=== PATIENT | female | born 1960 | race African-American/Black ===

== ENCOUNTER 2020-08-26 12:21 | Inpatient (IN) | payer MEDICARE, MEDICAID ==
[~2020-08-26] VITALS: Ht 165.1 cm; Wt 137.3 kg
[2020-08-26] MEDS ORDERED: CYMBALTA60 MG PO (12:30)
[2020-08-26] MEDS ORDERED: TOPROL XL100 MG PO (12:30)
[2020-08-26] MEDS ORDERED: ASPIRIN81 MG PO (12:31)
[2020-08-26] MEDS ORDERED: HYDROCODONE-AC1 EAC2 PO (12:31)
[2020-08-26] MEDS ORDERED: VOLTAREN75 MG PO (12:31)
[2020-08-26] MEDS ORDERED: CALCIUM 500 +1 EAC3 PO (12:32)
[2020-08-26] MEDS ORDERED: AMITRIPTYLINE H50 MG PO (12:32)
[2020-08-26] MEDS ORDERED: STOOL SOFTENER250 MG PO (12:32)
[2020-08-26 14:31] VITALS: BP 103/83
[2020-08-26 15:30] VITALS: BP 144/112
[2020-08-26 17:01] VITALS: BP 177/91
[2020-08-26 18:03] VITALS: BP 177/91
--- NOTE | 2020-08-26 18:11 | NUR ---
SARAH BARKLEY, SISTER [phone]
[2020-08-26 20:00] VITALS: BP 157/98
[2020-08-27] VITALS (8 sets, daily range): BP systolic 119–167; BP diastolic 68–90; Ht 165.1 cm; Wt 137.3 kg
[2020-08-27 07:07] LABS: BASOPHILS 1.1 % (0-2); HEMATOCRIT 30.2 % (36.0-48.0); MCH 29.5 pg (26.0-34.0); MCV 89.2 fL (80.0-100.0); MEAN PLATELET VOLUME 8.8 fL (7.4-10.4); NEUTROPHILS 52.9 % (40-80); PLATELET COUNT 349 10x3/uL (130-400); RBC 3.38 10x6/uL (4.00-5.40); RDW 15.2 % (11.5-14.5); WBC 6.9 10x3/uL (4.8-10.8)
[2020-08-27 07:10] LABS: ALBUMIN 2.5 g/dL (3.4-5.0); ALKALINE PHOSPHATASE 84 U/L (30-120); ALT (SGPT) 26 U/L (10-68); BILIRUBIN - TOTAL 0.43 mg/dL (0.2-1.3); C-REACTIVE PROTEIN 3.2 mg/dL (0.0-0.9); CALC OSMOLALITY 281 mosm/kg (275-300); CALCIUM 8.4 mg/dL (8.5-10.1); CARBON DIOXIDE 26.5 mmol/L (21.0-32.0); CHLORIDE - SERUM 110 mmol/L (98-107); CREATININE - SERUM 0.8 mg/dL (0.6-1.3); GLUCOSE 89 mg/dL (74-106); MAGNESIUM - SERUM 1.8 mg/dL (1.8-2.4); POTASSIUM - SERUM 3.4 mmol/L (3.5-5.1); PROTEIN - SERUM 7.1 g/dL (6.4-8.2); SODIUM 143 mmol/L (136-145); UREA NITROGEN 8 mg/dL (7-18); eGFR NON AFRICAN AMERICAN 78 mL/min (90-120)
--- NOTE | 2020-08-27 07:50 | NUR ---
ALERT AND ORIENTED. ASSESSMENT COMPLETE. DENIES NEEDS. BED LOW. CALL [facility] AND PERSONAL ITEMS IN REACH. WILL CONTINUE TO MONITOR.
--- NOTE | 2020-08-27 10:28 | NUR ---
OLD WOUND VAC FOAM REMOVED FROM PATIENT'S WOUND ON BACK. IRRIGATED WITH SALINE AND PACKED WITH WET GAUZE. COVERED WITH DRY GAUZE AND FOAM TAPE. WAITING WOUND VAC OR WOUND CARE ORDERS FROM . GREEN TINGED DRAINAGE NOTED FROM WOUND AT THIS TIME.
--- NOTE | 2020-08-27 11:14 | NUR ---
SPOKE WITH DR FISH WHO STATES PATIENT NEEDS TO GO BACK TO SURGEON SHE PREVIOUSLY SAW. STATES IS NOT GOING TO SEE THE PATIENT. ELIZABETH FAROOQ PAGED. WAITING CALL BACK.
--- NOTE | 2020-08-27 11:19 | NUR ---
SPOKE WITH ELIZABETH FAROOQ WHO STATES WE HAVE ALREADY TRIED TO SEND PATIENT BACK WHERE SHE CAME FROM BUT THEY DIDN'T HAVE A BED. DR FISH NOTIFIED AND STATES "WELL SHE NEEDS TO GO BACK SOON THEY HAVE A BED THEN." ELIZABETH FAROOQ MADE AWARE.
--- NOTE | 2020-08-27 13:48 | NUR ---
I have reviewed this patient and I concur with the Shift Assessment completed by the Licensed Practical Nurse today this shift.
--- NOTE | 2020-08-27 18:26 | NUR ---
CROOK REMOVED PER ORDER.
--- NOTE | 2020-08-27 19:13 | MORECARE ---
CASE MANAGEMENT DISCHARGE SUMMARY PATIENT: RHETT FOOTE UNIT: [id number] ADM DATE: 08/27/20 AGE: 60 : 62 SEX: F ROOM/BED: D.2220 AUTHOR: ARACELIDOC PHYSICIAN: REFERRING PHYSICIAN: BHUPINDER WINTER MD DATE OF SERVICE: 08/27/20 Case Management Discharge Planning Summary DCP REVIEW SUMMARY ANTICIPATED D/C DATE: EXPECTED LOS : CASE STATUS: DCP Initiated INITIAL REVIEW: 08/26/2020 INITIAL REVIEWER: Colt Holloway FINAL DISCHARGE DISPOSITION: : FINAL REVIEWER: FINAL REVIEW DATE: DCP Focus Questions & Answers DCP Evaluation QUESTION: ANSWER Family / Caregiver's ability to cope with chronic illness: : a. Adequate (ability to meet patient's medical needs, ensures patient attends medical appts.) Patient gives permission to discuss discharge plans with: (name, relationship and number) : Lucrecia dominique, Patient's ability to cope with chronic illness : d. No chronic illness Patient's current cognitive status: : *Oriented to person, place, situation, time and present Patient and/or caregiver agree upon recommended discharge plan? : Yes Physical Status: : Independent with ADL's Family / Caregiver's ability to cope with chronic illness: : a. Adequate (ability to meet patient's medical needs, ensures patient attends medical appts.) Functional screen assessment: : Basic needs can adequately be met by self Does the patient have the ability to pay for or attain post discharge needs / services? : Yes Living Arrangements: : Home with Extended Family Is there a likelihood that the patient will require additional services to return to the preadmission environment? : Yes Equipment needed for post hospitalization: : None Baseline cognitive status: : *Oriented to person, place, situation, time and present Patient with capacity for self-care or can be cared for in same environment as prior to hospitalization? : Yes Physical environment modification needed / anticipated for discharge: : No Medication Management: : Patient states can afford medications Medication Management: : Patient states can read and understand medication labels Pharmacy name(s): : [facility] in [place], [place] Does Patient have transportation to get home and to follow-up medical appointments when discharged from the hospital? : Yes Would patient like to participate in any Care Coordination programs (if applicable): : Not applicable Does the patient have electricity at home? : Yes Does the patient have running water in their house? : Yes Equipment in use: : Cane - Single Leg Equipment in use: : Walker - Rolling Mental health screen: : No mental health history DCP Re-evaluation QUESTION: ANSWER Would patient like to participate in any Care Coordination programs (if applicable): : Not applicable PATIENT: RHETT FOOTE ENCOUNTER: [id number] MEDICAL RECORD#: [id number] ADMISSION DATE: 08/27/2020 DISCHARGE DATE: ATTENDING MD: BHUPINDER LEMUS : AGE: 60 MARITAL STATUS: D DC PLAN ID: [id number] FACILITY: [facility] PRINTED ON: 08/27/20 19:13 CT All edits/amendments must be made on the electronic document DICTATION DATE: 08/27/201911 LOCAL TELEPHONE OPERATOR: ANTONINO 08/27/201911 RPT#: [id number] DC DATE: STATUS: ADM IN [facility] [address] [place] [address] END OF REPORT
--- NOTE | 2020-08-27 19:30 | NUR ---
RECEIVED BEDSIDE REPORT. ALERT AND ORIENTED X 4 RESTING IN BED. NO C/O PAIN, NO S/S OF DISTRESS. PIV TO LEFT FOREARM INFUSING. DRESSING C/D/I. DRESSING TO LOWER BACK C/D/I. UP WITH ASSISTANCE AND AMBULATORY WITH STEADY GAIT. EDUCATION PROVIDED FOR CALL LIGHT AND I/S. CALL LIGHT IN REACH BED LOCKED IN LOW POSITION.
--- NOTE | 2020-08-27 19:43 | MORECARE ---
CASE MANAGEMENT DISCHARGE SUMMARY PATIENT: RHETT FOOTE UNIT: [id number] ADM DATE: 08/27/20 AGE: 60 : 62 SEX: F ROOM/BED: D.2220 AUTHOR: ARACELIDOC PHYSICIAN: REFERRING PHYSICIAN: BHUPINDER WINTER MD DATE OF SERVICE: 08/27/20 Case Management Discharge Planning Summary COMMENTS ENTERED DATE: 08/27/20 19:41 CT COMMENT TYPE: Discharge Planning REVIEWER: Colt Holloway CM met with patient to complete DC plan and to evaluate needs. Patient lives independently with her daughter, Carlton and stated that her person to notify is her sister, Lucrecia Momin, . Patient stated that her home is safe and has electricity and running water. Patient stated that she does not want to continue home health services with [facility] and would like her home health and wound vac care to be with [facility]. Patient stated that she has no problems paying for medications and she fills her medications at [facility] in [place], [place]. Patient stated that her primary care physician is Dr. Medina. At discharge, the patient plans to return home and feels this is a safe discharge. CM discussed availability of home health, rehab services, and medical equipment. Patient declined SNF, IPR, and DME. Patient would like [facility] services, with [facility], . [facility] signed and placed in chart. Clinical faxed to [phone]. Patient stated that she has a cane and walker at home. Patient voiced no other needs at this time and is satisfied with DC plan. Transportation provider at discharge will be with [facility] BOURGEOIS delivered, explained, signed by the patient, and placed in chart. Copy of form also left with the patient. CM will continue to follow and will assist as needed with dc plans/needs. DCP REVIEW SUMMARY ANTICIPATED D/C DATE: EXPECTED LOS : CASE STATUS: DCP Initiated INITIAL REVIEW: 08/26/2020 INITIAL REVIEWER: Colt Holloway FINAL DISCHARGE DISPOSITION: : FINAL REVIEWER: FINAL REVIEW DATE: DCP Focus Questions & Answers DCP Evaluation QUESTION: ANSWER Patient and/or caregiver agree upon recommended discharge plan? : Yes Family / Caregiver's ability to cope with chronic illness: : a. Adequate (ability to meet patient's medical needs, ensures patient attends medical appts.) Patient's current cognitive status: : *Oriented to person, place, situation, time and present Patient's ability to cope with chronic illness : d. No chronic illness Patient gives permission to discuss discharge plans with: (name, relationship and number) : Lucrecia dominique, Does the patient have the ability to pay for or attain post discharge needs / services? : Yes Functional screen assessment: : Basic needs can adequately be met by self Family / Caregiver's ability to cope with chronic illness: : a. Adequate (ability to meet patient's medical needs, ensures patient attends medical appts.) Physical Status: : Independent with ADL's Equipment needed for post hospitalization: : None Is there a likelihood that the patient will require additional services to return to the preadmission environment? : Yes Living Arrangements: : Home with Extended Family Patient with capacity for self-care or can be cared for in same environment as prior to hospitalization? : Yes Baseline cognitive status: : *Oriented to person, place, situation, time and present Physical environment modification needed / anticipated for discharge: : No Medication Management: : Patient states can read and understand medication labels Medication Management: : Patient states can afford medications Pharmacy name(s): : [facility] in [place], [place] Does Patient have transportation to get home and to follow-up medical appointments when discharged from the hospital? : Yes Would patient like to participate in any Care Coordination programs (if applicable): : Not applicable Does the patient have electricity at home? : Yes Does the patient have running water in their house? : Yes Equipment in use: : Walker - Rolling Equipment in use: : Cane - Single Leg Mental health screen: : No mental health history DCP Re-evaluation QUESTION: ANSWER Would patient like to participate in any Care Coordination programs (if applicable): : Not applicable PATIENT: RHETT FOOTE ENCOUNTER: [id number] MEDICAL RECORD#: [id number] ADMISSION DATE: 08/27/2020 DISCHARGE DATE: ATTENDING MD: BHUPINDER LEMUS : AGE: 60 MARITAL STATUS: D DC PLAN ID: [id number] FACILITY: [facility] PRINTED ON: 08/27/20 19:43 CT All edits/amendments must be made on the electronic document DICTATION DATE: 08/27/201942 EMPLOYEE BENEFITS ADMINISTRATOR: ANTONINO 08/27/201942 RPT#: [id number] DC DATE: STATUS: ADM IN [facility] [address] [place] [address] END OF REPORT
[2020-08-28 03:53] VITALS: BP 124/55
[2020-08-28 07:41] VITALS: BP 146/80
[2020-08-28 09:19] LABS: BASOPHILS 0.8 % (0-2); EOSINOPHILS 5.5 % (0-7); HEMATOCRIT 32.6 % (36.0-48.0); HEMOGLOBIN 10.7 g/dL (12-16); MCH 29.4 pg (26.0-34.0); MCHC 32.8 g/dL (31.0-37.0); MCV 89.6 fL (80.0-100.0); MEAN PLATELET VOLUME 8.2 fL (7.4-10.4); MONOCYTES 6.5 % (2-11); NEUTROPHILS 63.2 % (40-80); PLATELET COUNT 375 10x3/uL (130-400); RBC 3.64 10x6/uL (4.00-5.40); RDW 15.4 % (11.5-14.5); WBC 6.8 10x3/uL (4.8-10.8)
[2020-08-28 09:33] LABS: ALBUMIN 2.5 g/dL (3.4-5.0); ANION GAP 11.1 mmol/L (8-16); BILIRUBIN - TOTAL 0.28 mg/dL (0.2-1.3); CALCIUM 8.4 mg/dL (8.5-10.1); CARBON DIOXIDE 27.8 mmol/L (21.0-32.0); CREATININE - SERUM 0.9 mg/dL (0.6-1.3); MAGNESIUM - SERUM 1.8 mg/dL (1.8-2.4); PHOSPHOROUS 3.1 mg/dL (2.5-4.9); POTASSIUM - SERUM 3.9 mmol/L (3.5-5.1); PROTEIN - SERUM 7.5 g/dL (6.4-8.2)
[2020-08-28 11:03] VITALS: BP 132/79
[2020-08-28] MEDS ORDERED: NICODERM CQ1 EAC2 TRANSDERM (14:13)
[2020-08-28] MEDS ORDERED: FLORAJEN DIGES1 EACH PO (14:13)
[2020-08-28] MEDS ORDERED: LEVAQUIN750 MG PO (14:13)
--- NOTE | 2020-08-28 14:13 | NUR ---
I have reviewed this patient and I concur with the Shift Assessment completed by the Licensed Practical Nurse today this shift.
--- NOTE | 2020-08-28 17:03 | NUR ---
DC HOME AT THIS TIME VIA CAB BACK TO [facility]. NO DISTRESS NOTED . MEDICTION CALLED IN TO [facility] @ [phone]. VOICE UNDERSTAND OF DC ORDERS. GOING TO HAVE [facility] FOR DRESSING CHANGES. DRESSING WAS CHANGED PRIOR TO DISCHARGE ON TODAY.
--- NOTE | 2020-08-28 19:16 | MORECARE ---
CASE MANAGEMENT DISCHARGE SUMMARY PATIENT: RHETT FOOTE UNIT: [id number] ADM DATE: 08/27/20 AGE: 60 : 62 SEX: F ROOM/BED: D.2220 AUTHOR: ARACELIDOC PHYSICIAN: REFERRING PHYSICIAN: BHUPINDER WINTER MD DATE OF SERVICE: 08/28/20 Case Management Discharge Planning Summary COMMENTS ENTERED DATE: 08/27/20 19:41 CT COMMENT TYPE: Discharge Planning REVIEWER: Colt Holloway CM met with patient to complete DC plan and to evaluate needs. Patient lives independently with her daughter, Carlton and stated that her person to notify is her sister, Lucrecia Momin, . Patient stated that her home is safe and has electricity and running water. Patient stated that she does not want to continue home health services with [facility] and would like her home health and wound vac care to be with [facility]. Patient stated that she has no problems paying for medications and she fills her medications at [facility] in [place], [place]. Patient stated that her primary care physician is Dr. Medina. At discharge, the patient plans to return home and feels this is a safe discharge. CM discussed availability of home health, rehab services, and medical equipment. Patient declined SNF, IPR, and DME. Patient would like [facility] services, with [facility] Care, . YOUSUF signed and placed in chart. Clinical faxed to [phone]. Patient stated that she has a cane and walker at home. Patient voiced no other needs at this time and is satisfied with DC plan. Transportation provider at discharge will be with [facility]OUR[facility] delivered, explained, signed by the patient, and placed in chart. Copy of form also left with the patient. CM will continue to follow and will assist as needed with dc plans/needs. DCP REVIEW SUMMARY ANTICIPATED D/C DATE: EXPECTED LOS : CASE STATUS: DCP Initiated INITIAL REVIEW: 08/26/2020 INITIAL REVIEWER: Colt Holloway FINAL DISCHARGE DISPOSITION: : FINAL REVIEWER: FINAL REVIEW DATE: DCP Focus Questions & Answers DCP Evaluation QUESTION: ANSWER Patient and/or caregiver agree upon recommended discharge plan? : Yes Family / Caregiver's ability to cope with chronic illness: : a. Adequate (ability to meet patient's medical needs, ensures patient attends medical appts.) Patient's current cognitive status: : *Oriented to person, place, situation, time and present Patient's ability to cope with chronic illness : d. No chronic illness Patient gives permission to discuss discharge plans with: (name, relationship and number) : Lucrecia dominique, Does the patient have the ability to pay for or attain post discharge needs / services? : Yes Functional screen assessment: : Basic needs can adequately be met by self Family / Caregiver's ability to cope with chronic illness: : a. Adequate (ability to meet patient's medical needs, ensures patient attends medical appts.) Physical Status: : Independent with ADL's Equipment needed for post hospitalization: : None Is there a likelihood that the patient will require additional services to return to the preadmission environment? : Yes Living Arrangements: : Home with Extended Family Patient with capacity for self-care or can be cared for in same environment as prior to hospitalization? : Yes Baseline cognitive status: : *Oriented to person, place, situation, time and present Physical environment modification needed / anticipated for discharge: : No Medication Management: : Patient states can read and understand medication labels Medication Management: : Patient states can afford medications Pharmacy name(s): : [facility] in [place], [place] Does Patient have transportation to get home and to follow-up medical appointments when discharged from the hospital? : Yes Would patient like to participate in any Care Coordination programs (if applicable): : Not applicable Does the patient have electricity at home? : Yes Does the patient have running water in their house? : Yes Equipment in use: : Walker - Rolling Equipment in use: : Cane - Single Leg Mental health screen: : No mental health history DCP Re-evaluation QUESTION: ANSWER Would patient like to participate in any Care Coordination programs (if applicable): : Not applicable PATIENT: RHETT FOOTE ENCOUNTER: [id number] MEDICAL RECORD#: [id number] ADMISSION DATE: 08/27/2020 DISCHARGE DATE: 08/28/2020 ATTENDING MD: BHUPINDER LEMUS : AGE: 60 MARITAL STATUS: D DC PLAN ID: [id number] FACILITY: [facility] PRINTED ON: 08/28/20 19:16 CT All edits/amendments must be made on the electronic document DICTATION DATE: 08/28/201915 INTERNAL COMBUSTION ENGINEER: ANTONINO 08/28/201915 RPT#: [id number] DC DATE:08/28/20 STATUS: DIS IN [facility] [address] [facility] [place] [address] END OF REPORT
--- NOTE | 2020-08-29 07:57 | MORECARE ---
CASE MANAGEMENT DISCHARGE SUMMARY PATIENT: RHTET FOOTE UNIT: [id number] ADM DATE: 08/27/20 AGE: 60 : 62 SEX: F ROOM/BED: D.2220 AUTHOR: ARACELIDOC PHYSICIAN: REFERRING PHYSICIAN: BHUPINDER WINTER MD DATE OF SERVICE: 08/29/20 Case Management Discharge Planning Summary COMMENTS ENTERED DATE: 08/27/20 19:41 CT COMMENT TYPE: Discharge Planning REVIEWER: Colt Holloway CM met with patient to complete DC plan and to evaluate needs. Patient lives independently with her daughter, Carlton and stated that her person to notify is her sister, Lucrecia Momin, . Patient stated that her home is safe and has electricity and running water. Patient stated that she does not want to continue home health services with [facility] and would like her home health and wound vac care to be with [facility]. Patient stated that she has no problems paying for medications and she fills her medications at [facility] in [place], [place]. Patient stated that her primary care physician is Dr. Medina. At discharge, the patient plans to return home and feels this is a safe discharge. CM discussed availability of home health, rehab services, and medical equipment. Patient declined SNF, IPR, and DME. Patient would like [facility] services, with [facility] Care, . YOUSUF signed and placed in chart. Clinical faxed to [phone]. Patient stated that she has a cane and walker at home. Patient voiced no other needs at this time and is satisfied with DC plan. Transportation provider at discharge will be with [facility]OURGEO[facility] delivered, explained, signed by the patient, and placed in chart. Copy of form also left with the patient. CM will continue to follow and will assist as needed with dc plans/needs. DCP REVIEW SUMMARY ANTICIPATED D/C DATE: EXPECTED LOS : CASE STATUS: DCP Initiated INITIAL REVIEW: 08/26/2020 INITIAL REVIEWER: Colt Holloway FINAL DISCHARGE DISPOSITION: : FINAL REVIEWER: FINAL REVIEW DATE: DCP Focus Questions & Answers DCP Evaluation QUESTION: ANSWER Patient and/or caregiver agree upon recommended discharge plan? : Yes Family / Caregiver's ability to cope with chronic illness: : a. Adequate (ability to meet patient's medical needs, ensures patient attends medical appts.) Patient's current cognitive status: : *Oriented to person, place, situation, time and present Patient's ability to cope with chronic illness : d. No chronic illness Patient gives permission to discuss discharge plans with: (name, relationship and number) : Lucrecia dominique, Does the patient have the ability to pay for or attain post discharge needs / services? : Yes Functional screen assessment: : Basic needs can adequately be met by self Family / Caregiver's ability to cope with chronic illness: : a. Adequate (ability to meet patient's medical needs, ensures patient attends medical appts.) Physical Status: : Independent with ADL's Equipment needed for post hospitalization: : None Is there a likelihood that the patient will require additional services to return to the preadmission environment? : Yes Living Arrangements: : Home with Extended Family Patient with capacity for self-care or can be cared for in same environment as prior to hospitalization? : Yes Baseline cognitive status: : *Oriented to person, place, situation, time and present Physical environment modification needed / anticipated for discharge: : No Medication Management: : Patient states can read and understand medication labels Medication Management: : Patient states can afford medications Pharmacy name(s): : [facility] in [place], [place] Does Patient have transportation to get home and to follow-up medical appointments when discharged from the hospital? : Yes Would patient like to participate in any Care Coordination programs (if applicable): : Not applicable Does the patient have electricity at home? : Yes Does the patient have running water in their house? : Yes Equipment in use: : Walker - Rolling Equipment in use: : Cane - Single Leg Mental health screen: : No mental health history DCP Re-evaluation QUESTION: ANSWER Would patient like to participate in any Care Coordination programs (if applicable): : Not applicable PATIENT: RHETT FOOTE ENCOUNTER: [id number] MEDICAL RECORD#: [id number] ADMISSION DATE: 08/27/2020 DISCHARGE DATE: 08/28/2020 ATTENDING MD: BHUPINDER LEMUS : AGE: 60 MARITAL STATUS: D DC PLAN ID: [id number] FACILITY: [facility] PRINTED ON: 08/29/20 7:57 CT All edits/amendments must be made on the electronic document DICTATION DATE: 08/29/20 0757 FOREST FIRE FIGHTER: ANTONINO 08/29/20 0757 RPT#: [id number] DC DATE:08/28/20 STATUS: DIS IN [facility] [address] [place] [address] END OF REPORT
--- NOTE | 2020-08-30 14:34 | MORECARE ---
CASE MANAGEMENT DISCHARGE SUMMARY PATIENT: RHETT FOOTE UNIT: [id number] ADM DATE: 08/27/20 AGE: 60 : 62 SEX: F ROOM/BED: D.2220 AUTHOR: ARACELIDOC PHYSICIAN: REFERRING PHYSICIAN: BHUPINDER WINTER MD DATE OF SERVICE: 08/30/20 Case Management Discharge Planning Summary COMMENTS ENTERED DATE: 08/27/20 19:41 CT COMMENT TYPE: Discharge Planning REVIEWER: Colt Holloway CM met with patient to complete DC plan and to evaluate needs. Patient lives independently with her daughter, Carlton and stated that her person to notify is her sister, Lucrecia Momin, . Patient stated that her home is safe and has electricity and running water. Patient stated that she does not want to continue home health services with [facility] and would like her home health and wound vac care to be with [facility]. Patient stated that she has no problems paying for medications and she fills her medications at [facility] in [place], [place]. Patient stated that her primary care physician is Dr. Medina. At discharge, the patient plans to return home and feels this is a safe discharge. CM discussed availability of home health, rehab services, and medical equipment. Patient declined SNF, IPR, and DME. Patient would like [facility] services, with [facility], . YOUSUF signed and placed in chart. Clinical faxed to [phone]. Patient stated that she has a cane and walker at home. Patient voiced no other needs at this time and is satisfied with DC plan. Transportation provider at discharge will be with [facility] BOURGEOIS delivered, explained, signed by the patient, and placed in chart. Copy of form also left with the patient. CM will continue to follow and will assist as needed with dc plans/needs. DCP REVIEW SUMMARY ANTICIPATED D/C DATE: EXPECTED LOS : CASE STATUS: DCP Initiated INITIAL REVIEW: 08/26/2020 INITIAL REVIEWER: Colt Holloway FINAL DISCHARGE DISPOSITION: : FINAL REVIEWER: FINAL REVIEW DATE: DCP Focus Questions & Answers DCP Evaluation QUESTION: ANSWER Patient and/or caregiver agree upon recommended discharge plan? : Yes Family / Caregiver's ability to cope with chronic illness: : a. Adequate (ability to meet patient's medical needs, ensures patient attends medical appts.) Patient's current cognitive status: : *Oriented to person, place, situation, time and present Patient's ability to cope with chronic illness : d. No chronic illness Patient gives permission to discuss discharge plans with: (name, relationship and number) : Lucrecia dominique, Does the patient have the ability to pay for or attain post discharge needs / services? : Yes Functional screen assessment: : Basic needs can adequately be met by self Family / Caregiver's ability to cope with chronic illness: : a. Adequate (ability to meet patient's medical needs, ensures patient attends medical appts.) Physical Status: : Independent with ADL's Equipment needed for post hospitalization: : None Is there a likelihood that the patient will require additional services to return to the preadmission environment? : Yes Living Arrangements: : Home with Extended Family Patient with capacity for self-care or can be cared for in same environment as prior to hospitalization? : Yes Baseline cognitive status: : *Oriented to person, place, situation, time and present Physical environment modification needed / anticipated for discharge: : No Medication Management: : Patient states can read and understand medication labels Medication Management: : Patient states can afford medications Pharmacy name(s): : [facility] in [place], [place] Does Patient have transportation to get home and to follow-up medical appointments when discharged from the hospital? : Yes Would patient like to participate in any Care Coordination programs (if applicable): : Not applicable Does the patient have electricity at home? : Yes Does the patient have running water in their house? : Yes Equipment in use: : Walker - Rolling Equipment in use: : Cane - Single Leg Mental health screen: : No mental health history DCP Re-evaluation QUESTION: ANSWER Would patient like to participate in any Care Coordination programs (if applicable): : Not applicable PATIENT: RHETT FOOTE ENCOUNTER: [id number] MEDICAL RECORD#: [id number] ADMISSION DATE: 08/27/2020 DISCHARGE DATE: 08/28/2020 ATTENDING MD: BHUPINDER LEMUS : AGE: 60 MARITAL STATUS: D DC PLAN ID: [id number] FACILITY: [facility] PRINTED ON: 08/30/20 14:34 CT All edits/amendments must be made on the electronic document DICTATION DATE: 08/30/20 1434 BUTTONHOLE TACKER: ANTONINO 08/30/20 1434 RPT#: [id number] DC DATE:08/28/20 STATUS: DIS IN [facility] [address] [place] [address] END OF REPORT
== END 2020-08-28 17:05 | disposition home health service (06) | DRG 605 ==
LOC: D.ER 12:21 → D.MS 14:16 → D.EDHOLD 14:16 → OBSVTIME 14:16 → D.MS 17:02
PROVIDERS: Family Medicine; ADMIT Emergency Medicine; ATTEND Emergency Medicine
DX: S31.000A Unspecified open wound of lower back and pelvis without penetration into retroperitoneum, initial encounter (principal); F14.90 Cocaine use, unspecified, uncomplicated; R00.0 Tachycardia, unspecified